=== PATIENT | female | born 1960 | race Caucasian/White ===

== ENCOUNTER 2020-01-26 06:55 | Emergency (ER) | payer OTHER ==
[~2020-01-26] VITALS: Ht 162.6 cm; Wt 57.6 kg
[~2020-01-26 06:55] MED LIST: CELEXA20 MG PO; FLEXERIL PO; FOSAMAX; PROAIR HFA8.5 GM; PROTONIX 20 MG20 M1; VICODIN 5-5001 EACH PO; ZOLOFT 50 MG TA50 M1
[2020-01-26] MEDS ORDERED: FOSAMAX 70 MG T70 MG PO (07:13)
[2020-01-26] MEDS ORDERED: FLEXERIL PO (07:28)
[2020-01-26] MEDS ORDERED: CYCLOBENZAPRINE5 MG PO (07:30)
[2020-01-26 07:44] VITALS: BP 135/84
== END 2020-01-26 07:45 | disposition home or self-care (01) ==
LOC: ER 06:55
DX: S16.1XXA Strain of muscle, fascia and tendon at neck level, initial encounter (principal); K21.9 Gastro-esophageal reflux disease without esophagitis; J44.9 Chronic obstructive pulmonary disease, unspecified; M19.90 Unspecified osteoarthritis, unspecified site; Z88.6 Allergy status to analgesic agent; Z98.51 Tubal ligation status; V49.59XA Passenger injured in collision with other motor vehicles in traffic accident, initial encounter; Y93.89 Activity, other specified; Y92.89 Other specified places as the place of occurrence of the external cause; Y99.8 Other external cause status

== ENCOUNTER 2020-04-04 09:23 | Emergency (ER) | payer OTHER ==
[~2020-04-04] VITALS: Ht 165.1 cm; Wt 53.5 kg
[~2020-04-04 09:23] MED LIST changes: +CYCLOBENZAPRINE5 MG PO; +FOSAMAX 70 MG T70 MG PO
[2020-04-04 09:27] VITALS: BP 133/72
[2020-04-04] MEDS ORDERED: MOVANA300 MG PO (09:32)
[2020-04-04] MEDS ORDERED: PRILOSEC OTC20 MG PO (09:33)
[2020-04-04] MEDS ORDERED: PENICILLIN V P500 MG PO (09:40)
[2020-04-04] MEDS ORDERED: NORCO 5-325 TA1 EAC2 PO (09:40)
== END 2020-04-04 09:41 | disposition home or self-care (01) ==
LOC: ER 09:23
DX: K04.7 Periapical abscess without sinus (principal); J44.9 Chronic obstructive pulmonary disease, unspecified; K21.9 Gastro-esophageal reflux disease without esophagitis; M19.90 Unspecified osteoarthritis, unspecified site; Z98.51 Tubal ligation status; Z79.899 Other long term (current) drug therapy; Z88.6 Allergy status to analgesic agent; Z87.891 Personal history of nicotine dependence

== ENCOUNTER 2020-05-09 13:14 | Emergency (ER) | payer OTHER ==
[~2020-05-09] VITALS: Ht 165.1 cm; Wt 53.5 kg
[~2020-05-09 13:14] MED LIST changes: +MOVANA300 MG PO; +NORCO 5-325 TA1 EAC2 PO; +PENICILLIN V P500 MG PO; +PRILOSEC OTC20 MG PO
[2020-05-09 13:20] VITALS: BP 131/96
[2020-05-09] MEDS ORDERED: PENICILLIN V P500 MG PO (13:54)
[2020-05-09] MEDS ORDERED: NORCO 5-325 TA1 EAC2 PO (13:54)
== END 2020-05-09 14:10 | disposition home or self-care (01) ==
LOC: ER 13:14
DX: K04.7 Periapical abscess without sinus (principal); R51 Headache; K21.9 Gastro-esophageal reflux disease without esophagitis; Z87.891 Personal history of nicotine dependence; Z79.2 Long term (current) use of antibiotics; Z79.899 Other long term (current) drug therapy; Z88.6 Allergy status to analgesic agent

== ENCOUNTER 2020-08-14 00:06 | Emergency (ER) | payer OTHER ==
[~2020-08-14] VITALS: Ht 165.1 cm; Wt 54.4 kg
[2020-08-14] MEDS ORDERED: NORCO 5-325 TA1 EAC2 PO (00:48)
[2020-08-14 01:05] VITALS: BP 130/85
== END 2020-08-14 01:05 | disposition home or self-care (01) ==
LOC: ER 00:06
DX: K02.7 Dental root caries (principal); K21.9 Gastro-esophageal reflux disease without esophagitis; Z79.899 Other long term (current) drug therapy; Z87.891 Personal history of nicotine dependence; Z88.6 Allergy status to analgesic agent

== ENCOUNTER 2021-06-23 00:48 | Emergency (ER) | payer OTHER ==
[~2021-06-23] VITALS: Ht 165.1 cm; Wt 53.5 kg
[2021-06-23] MEDS ORDERED: FOSAMAX 70 MG T70 MG PO (00:57)
[2021-06-23] MEDS ORDERED: FLEXERIL PO (01:19)
[2021-06-23 07:50] VITALS: BP 120/80
== END 2021-06-23 01:35 | disposition home or self-care (01) ==
LOC: ER 00:48
DX: M62.838 Other muscle spasm (principal); F32.9 Major depressive disorder, single episode, unspecified; K21.9 Gastro-esophageal reflux disease without esophagitis; M19.90 Unspecified osteoarthritis, unspecified site; Z79.899 Other long term (current) drug therapy; Z88.5 Allergy status to narcotic agent; Z87.891 Personal history of nicotine dependence; W18.39XA Other fall on same level, initial encounter; Y93.89 Activity, other specified; Y92.89 Other specified places as the place of occurrence of the external cause; Y99.8 Other external cause status

== ENCOUNTER 2021-09-26 09:19 | Emergency (ER) | payer OTHER ==
[~2021-09-26] VITALS: Ht 165.1 cm; Wt 50.8 kg
[2021-09-26 09:25] VITALS: BP 158/84
[2021-09-26] MEDS ORDERED: NORCO5 PO (10:09)
== END 2021-09-26 10:08 | disposition home or self-care (01) ==
LOC: ER 09:19
DX: S52.511A Displaced fracture of right radial styloid process, initial encounter for closed fracture (principal); F32.9 Major depressive disorder, single episode, unspecified; M19.90 Unspecified osteoarthritis, unspecified site; K21.9 Gastro-esophageal reflux disease without esophagitis; Z98.51 Tubal ligation status; Z98.890 Other specified postprocedural states; Z79.899 Other long term (current) drug therapy; Z79.82 Long term (current) use of aspirin; Z87.891 Personal history of nicotine dependence; W00.0XXA Fall on same level due to ice and snow, initial encounter; Y93.89 Activity, other specified; Y92.89 Other specified places as the place of occurrence of the external cause; Y99.8 Other external cause status